=== PATIENT | female | born 1995 | race Caucasian/White ===

== ENCOUNTER 2016-03-10 11:55 | Emergency (ER) | payer BC ==
[~2016-03-10] VITALS: Wt 51.3 kg
[~2016-03-10 11:55] MED LIST: PREN1TAB62 PO
[2016-03-10 13:23] LABS: URINE BLOOD (Dip) POC Negative (NEGATIVE)
[2016-03-10] MEDS ORDERED: ACETAMINOPHEN 325 MG TAB PO STA (13:32)
--- NOTE | 2016-03-10 15:00 | RADRPT ---
PROCEDURE: US OB. CLINICAL INDICATION: Size and dates , pelvic pain TECHNIQUE: Multiple sonographic images of the pelvis and gravid uterus were obtained. The images were reviewed on a PACS workstation. COMPARISON: 02/04/16 FINDINGS: There is a single viable intrauterine gestation. Cardiac activity is present with 150 beats per min valentin. There is a variable presentation. The placenta is posterior. There is no evidence for an abruption or placenta previa. There is a normal amount of amniotic fluid with a MVP= 3.7 cm. Measurements were made in order to determine age. The results are as follows: BPD =2.9 cm HC =11.3 cm AC =9.3 cm FL =1.5 cm Estimated gestational age of approximately 15 weeks and 1 day based on ultrasound measurements. Clinical age: 15 weeks and 4 days. The estimated date of delivery is 08/31/16, based on ultrasound measurements. The EFW = 112 g, 11.2%, based on LMP age. RPTAT: AA IMPRESSION: Single viable intrauterine gestation of approximately 15 weeks and 1 day based on ultrasound measur ements. .Andrew Banuelos MD, Date Time Electronically viewed and signed by .Andrew Banuelos MD, on 03/10/2016 14:59 .S/
[2016-03-10 15:08] VITALS: BP 122/68; PULSE 89; RESP 18
--- NOTE | 2016-03-10 17:40 | ERD ---
ER Documentation Chief Complaint Date/Time DATE: 03/10/16 TIME: 17:38 Chief Complaint diarrhea and abdominal cramping for the past 2 days. 16 wks preg HPI Patient is a 20-year-old female who presents with cramps. She has lower abdominal cramps which started 2 days ago. She went to Dr. Price today who sent her to the ER for ultrasound. She is not bleeding. She tried Tylenol yesterday. She has had diarrhea for the past 5 days as well. Her OB doctor is Dr. Price. ROS All systems reviewed and are negative except as per history of present illness. Medications Home Meds Reported Medications Vit-Iron Fumarate-FA ( Vitamin Tablet) 1 Each Tablet, 1 TAB PO DAILY, TAB 05/15/15 Allergies Allergies: Coded Allergies: No Known Allergy (Unverified , 05/16/15) PMhx/Soc History of Surgery: Yes (csection, right knee, nose ) Anesthesia Reaction: No Hx Neurological Disorder: No Hx Respiratory Disorders: No Hx Cardiac Disorders: No Hx Psychiatric Problems: No Hx Miscellaneous Medical Probl: No Hx Alcohol Use: No Hx Substance Use: No Hx Tobacco Use: No Smoking Status: Former smoker FmHx Family History: diabetes Physical Exam Vitals Vital Signs Date Time Temp Pulse Resp B/P Pulse Ox O2 Delivery O2 Flow Rate FiO2 03/10/16 15:08 89 18 122/68 98 Room Air 03/10/16 12:04 98.7 91 20 126/50 98 Physical Exam Const: No acute distress Head: Atraumatic Eyes: Normal Conjunctiva ENT: Normal External Ears, Nose and Mouth. Neck: Full range of motion..~ No meningismus. Resp: Clear to auscultation bilaterally Cardio: Regular rate and rhythm, no murmurs Abd: Soft, minimal tenderness in the lower pelvic area without rebound or guarding Skin: No petechiae or rashes Back: No midline or flank tenderness Ext: No cyanosis, or edema Neur: Awake and alert Psych: Normal Mood and Affect Results 24 hrs Laboratory Tests Test 03/10/16 13:23 Bedside Urine Blood Negative Bedside Urine Glucose (UA) Negative Bedside Urine Ketones (LAB) Negative Bedside Urine Leukocyte Esterase (L Negative Bedside Urine Nitrite (LAB) Negative Bedside Urine Protein (LAB) Trace Bedside Urine pH (LAB) 6.5 Current Medications Medications (Trade) Dose Ordered Sig/Ruddy Route PRN Reason Start Time Stop Time Status Last Admin Dose Admin Acetaminophen (Tylenol Tab) 650 mg ONCE STAT PO 03/10/16 13:32 03/10/16 13:33 DC 03/10/16 13:36 Procedures/MDM Ultrasound shows IUP at 15 weeks per radiology with heart tones. Patient is a 20-year-old female presents with abdominal cramping while . Her ultrasound is normal and I doubt ectopic . Urine dip shows no signs of infection at this time. She is not having any vaginal bleeding. I doubt appendicitis, cholecystitis, pink otitis, or bowel obstruction. I believe outpatient management is appropriate. The patient will need to follow-up closely with Dr. Price within 24 hours for reevaluation. She can return sooner for any worsening symptoms. Departure Diagnosis: Primary Impression: related abdominal pain of lower quadrant, antepartum Additional Impression: Abdominal pain Abdominal location: unspecified location Qualified Code: R10.9 - Abdominal pain, unspecified location Condition: Fair Patient Instructions: Abdominal Pain, Early Referrals: LYDIA PRICE MD Additional Instructions: Call your primary care doctor TOMORROW for an appointment during the next 1-2 days.See the doctor sooner or return here if your condition worsens before your appointment time. SALINA HATCH MD Mar 10, 2016 17:40
== END 2016-03-10 15:09 | disposition home or self-care (01) ==
LOC: E/R 11:55
DX: O26.892 Other specified pregnancy related conditions, second trimester (principal); R10.30 Lower abdominal pain, unspecified; Z87.891 Personal history of nicotine dependence; Z3A.15 15 weeks gestation of pregnancy
CPT/HCPCS: 76805; 81003; 99284; Z7610

== ENCOUNTER 2017-03-22 23:29 | Emergency (ER) | END 2017-03-23 05:01 | disposition home or self-care (01) ==